=== PATIENT | female | born 2000 | race Caucasian/White ===

== ENCOUNTER 2021-01-14 | Emergency (ER) | payer SELFPAY ==
[~2021-01-14] MED LIST: ADVAIR HF1 IN; AUGMENTIN400 MG/5 M OR; AURALGAN15 ML AU; BACTRIM DS1 TAB PO; CORTISPORIN OP7.5 ML OP; FLOXIN OTIC OT; NO HOME MEDS; PATANOL0.1 % OP; SINGULAIR10 MG OR; STRATTERA10 MG OR; STRATTERA18 MG OR; TYLENOL & COD12.5 ML OR; ZITHROMAX250 MG OR; ZOFRAN ODT4 MG PO
[2021-01-14 20:44] LABS: URINE BILIRUBIN - DIPSTICK NEGATIVE (NEGATIVE); URINE BLOOD DIPSTICK NEGATIVE (NEGATIVE); URINE COLOR YELLOW; URINE GLUCOSE - DIPSTICK NEGATIVE (NEGATIVE); URINE KETONE NEGATIVE (NEGATIVE); URINE PROTEIN - DIPSTICK NEGATIVE (NEG-TRACE)
[2021-01-14 20:52] LABS: URINE BACTERIA MANY hpf; URINE LEUK ESTERASE SMALL (NEGATIVE); URINE NITRITE - DIPSTICK NEGATIVE (Negative); URINE SQUAMOUS EPITHELIAL CELL FEW EPI/hpf (0-FEW); URINE WBC 20-50 WBC/hpf (0-5)
[2021-01-14 20:58] LABS: HEMATOCRIT 34.4 % (37.0-47.0); IMMATURE GRANULOCYTES 0.6 % (0.0-5.0); MEAN CELL VOLUME 83.5 fL CALC (80.0-100.0); MEAN CORPUSCULAR HGB 26.5 pG CALC (26.0-32.0); MEAN CORPUSCULAR HGB CONC 31.7 g/dL CAL (32.0-36.0); NEUT# 11.26 thou/uL (2.00-7.15); RED BLOOD COUNT 4.12 mill/uL (4.20-5.60); RED CELL DISTRI WIDTH 13.3 % (11.5-15.5)
[2021-01-14 21:03] LABS: HEMOGLOBIN 10.9 g/dl (12.0-16.0)
[2021-01-14 21:14] LABS: AMYLASE 46 u/l (30-110); ANION GAP 13 (6-22 (CALC)); BILIRUBIN, TOTAL 0.7 mg/dL (0.0-1.4); BUN 9 mg/dL (8-21); BUN/CREATININE RATIO 15 (12-20 (CALC)); CARBON DIOXIDE 25 mmol/l (22-30); CHLORIDE 103 mmol/l (95-108); CREATININE 0.6 mg/dL (0.5-1.0); GFR > 60 ML/MIN (>=60 (CALC)); GFR FOR AFR.AMER. > 60 ML/MIN (>=60 (CALC)); LIPASE 51 u/l (23-300); POTASSIUM 4.4 mmol/l (3.5-5.1); SODIUM 137 mmol/l (137-146); TOTAL PROTEIN 6.8 g/dL (6.3-8.2)
[2021-01-14 21:27] LABS: ALBUMIN 3.6 g/dL (3.2-5.0); ALKALINE PHOSPHATASE 110 u/l (38-126); SGOT/AST 70 u/l (14-36)
[2021-01-14] MEDS ORDERED: BACTRIM DS1 TAB PO (23:00)
[2021-01-14] MEDS ORDERED: TRAMADOL HYDROC50 MG PO (23:00)
== END 2021-01-14 23:10 | disposition home or self-care (01) | DRG 690 ==
PROVIDERS: Family Medicine
DX: N39.0 Urinary tract infection, site not specified (principal); K80.20 Calculus of gallbladder without cholecystitis without obstruction; B96.20 Unspecified Escherichia coli [E. coli] as the cause of diseases classified elsewhere
CPT/HCPCS: Q9967

== ENCOUNTER 2021-01-31 19:37 | Emergency (ER) | payer SELFPAY ==
[~2021-01-31] VITALS: Ht 162.6 cm; Wt 127.0 kg
[~2021-01-31 19:37] MED LIST changes: +TRAMADOL HYDROC50 MG PO
[2021-01-31 20:29] LABS: URINE BILIRUBIN - DIPSTICK NEGATIVE (NEGATIVE); URINE BLOOD DIPSTICK NEGATIVE (NEGATIVE); URINE COLOR YELLOW; URINE GLUCOSE - DIPSTICK NEGATIVE (NEGATIVE); URINE KETONE NEGATIVE (NEGATIVE); URINE LEUK ESTERASE NEGATIVE (NEGATIVE); URINE PROTEIN - DIPSTICK NEGATIVE (NEG-TRACE); URINE SPECIFIC GRAVITY >=1.030; URINE UROBILINOGEN - DIPSTICK 0.2 E.U./dL (0.2)
[2021-01-31 20:30] LABS: URINE NITRITE - DIPSTICK NEGATIVE (Negative)
[2021-01-31 21:31] VITALS: BP 131/68
== END 2021-01-31 21:36 | disposition home or self-care (01) | DRG 761 ==
LOC: ED 19:37
DX: N91.2 Amenorrhea, unspecified (principal)